=== PATIENT | female | born 1990 | race African-American/Black ===

== ENCOUNTER 2017-11-15 02:50 | Emergency (ER) | payer SELFPAY ==
[~2017-11-15] VITALS: Ht 170.2 cm; Wt 68.0 kg
[2017-11-15 06:03] LABS: BASOPHILS % 1.2 % (0.0-2.0); HEMATOCRIT. 40.9 % (36.0-48.0); LYMPHOCYTES % 53.8 % (20.0-50.0); MEAN CORPUSCULAR HEMOGLOBIN 32.1 pg (28.0-32.0); MEAN CORPUSCULAR VOLUME 93.6 fL (81.0-99.0); MEAN PLATELET VOLUME 7.7 fl (7.4-10.4); MONOCYTES % 6.7 % (2.0-8.0); NEUTROPHILS % 35.3 % (40.0-76.0); PLATELET 326 x1000/uL (130-400); RED BLOOD CELL COUNT 4.37 mill/uL (4.2-5.4); RED CELL DISTRIBUTION WIDTH 13.2 % (11.6-14.6)
[2017-11-15 06:08] LABS: CHLORIDE 112 mEq/L (98-107)
[2017-11-15 06:15] LABS: ETHANOL BLOOD 251 mg/dL
[2017-11-15 11:47] VITALS: BP 55/44
== END 2017-11-15 11:48 | disposition home or self-care (01) ==
LOC: ER 02:50
DX: F10.229 Alcohol dependence with intoxication, unspecified (principal); Z79.899 Other long term (current) drug therapy; Y90.8 Blood alcohol level of 240 mg/100 ml or more
CPT/HCPCS: 36415; 80053; 80307; 80329; 85025; 99284; G0482